=== PATIENT | female | born 1960 | race Caucasian/White ===

== ENCOUNTER 2020-06-21 17:32 | Emergency (ER) | payer BC ==
[~2020-06-21] VITALS: Ht 165.1 cm; Wt 80.0 kg
[~2020-06-21 17:32] MED LIST: FLO0.4C PO; HYDR-4383 PO; NAPR500T6 PO
[2020-06-21] MEDS ORDERED: ondansetron/PF 4mg/2ml inj IV ONE (17:55)
[2020-06-21] MEDS ORDERED: diazepam inj 5 MG/ML inj. IV ONE (17:55)
[2020-06-21] MEDS ORDERED: normal saline 1000ml 1,000 ML IV ONE (18:00)
[2020-06-21] MEDS ORDERED: meclizine 12.5mg tablet PO ONE (18:00)
--- NOTE | 2020-06-21 18:12 | NUR ---
Pt drowsy after valium and O2 sats dropping into the 80's. Dr. Wen aware and patiet place on O2 MNC at 3 L with O2 sats at 100%
[2020-06-21] MEDS ORDERED: MECL-184 PO (19:08)
[2020-06-21 19:38] VITALS: BP 130/77
== END 2020-06-21 19:40 | disposition home or self-care (01) ==
LOC: ER 17:32
DX: R42 Dizziness and giddiness (principal); R11.2 Nausea with vomiting, unspecified; R55 Syncope and collapse; M06.9 Rheumatoid arthritis, unspecified; F17.200 Nicotine dependence, unspecified, uncomplicated; Z91.041 Radiographic dye allergy status; Z79.899 Other long term (current) drug therapy
CPT/HCPCS: 93005; 96361; 96374; 96375; 99284; J2405; J3360; J7030